=== PATIENT | female | born 1995 | race Hispanic/Latino ===

== ENCOUNTER 2019-10-24 21:48 | Observation (INO) | payer MEDICAID ==
[~2019-10-24] VITALS: Ht 157.5 cm; Wt 73.5 kg
[~2019-10-24 21:48] MED LIST: IBUP-2070 PO; TYL3 PO
[2019-10-24] MEDS ORDERED: LACTATED RINGERS 1000ML 1,000 ML IV SCH (22:00)
[2019-10-24] MEDS ORDERED: PREN-196 PO (22:04)
[2019-10-24] MEDS ORDERED: FERR-82 PO (22:04)
[2019-10-24 22:10] VITALS: BP 111/68
[2019-10-24 22:39] LABS: APPEARANCE,URINE Clear (CLEAR); BILIRUBIN,URINE Negative (NEGATIVE); COLOR,URINE Yellow (YELLOW); GLUCOSE, URINE (UA) Negative (NEGATIVE); KETONES,URINE >=160 mg/dL (NEGATIVE); LEUKOCYTE ESTERASE ,URINE Negative (NEGATIVE); NITRATE,URINE Negative (NEGATIVE); OCCULT BLOOD,URINE Negative (NEGATIVE); PH,URINE 6.5 (5.0-8.0); PROTEIN,URINE Negative (NEGATIVE)
[2019-10-24 22:46] LABS: AMPHET/METH SCREEN,URINE NEGATIVE (NEGATIVE); BARBITURATE SCREEN, URINE NEGATIVE (NEGATIVE); BENZODIAZEPINES SCREEN,URINE NEGATIVE (NEGATIVE); CANNABINOID SCREEN,URINE POSITIVE (NEGATIVE); COCAINE SCREEN,URINE NEGATIVE (NEGATIVE); OPIATE SCREEN,URINE NEGATIVE (NEGATIVE); PHENCYCLIDINE SCREEN,URINE NEGATIVE (NEGATIVE)
[2019-10-24] MEDS ORDERED: ACETAMINOPHEN EXTRA STRENGTH 500 MG TABLET ONE (23:11)
[2019-10-24] MEDS ORDERED: LACTATED RINGERS 1000ML IV PRN (23:15)
[2019-10-24] MEDS ORDERED: ACETAMINOPHEN EXTRA STRENGTH 500 MG TABLET PO SCH (23:15)
[2019-10-24 23:19] LABS: BACTERIA,URINE Few /HPF (None Seen); MUCUS,URINE Moderate LPF (None Seen); RBC,URINE 0-1 /HPF (0-1); SQUAMOUS EPITHELIAL CELL,UR 0-2 /HPF (0-2)
[2019-10-25] MEDS ORDERED: LACTATED RINGERS 1000ML 1,000 ML IV SCH (00:15)
== END 2019-10-25 01:20 | disposition home or self-care (01) ==
LOC: EDH 21:48 → LDH 21:49
PROVIDERS: ADMIT Obstetrics & Gynecology; ATTEND Obstetrics & Gynecology
DX: O26.892 Other specified pregnancy related conditions, second trimester (principal); R10.30 Lower abdominal pain, unspecified; R51 Headache; Z87.59 Personal history of other complications of pregnancy, childbirth and the puerperium; Z3A.20 20 weeks gestation of pregnancy
CPT/HCPCS: 80305; 81001; 99284; G0378 ×3; J7120 ×2; 96360; 96361

== ENCOUNTER 2019-11-27 11:58 | Observation (INO) | payer MEDICAID ==
[~2019-11-27 11:58] MED LIST changes: +FERR-82 PO; +PREN-196 PO
[2019-11-27] MEDS ORDERED: ACETAMINOPHEN 325 MG TAB ONE (12:34)
[2019-11-27 13:31] LABS: APPEARANCE,URINE Cloudy (CLEAR); BILIRUBIN,URINE Negative (NEGATIVE); COLOR,URINE Dark Yellow (YELLOW); GLUCOSE, URINE (UA) Negative (NEGATIVE); KETONES,URINE Trace mg/dL (NEGATIVE); LEUKOCYTE ESTERASE ,URINE Negative (NEGATIVE); NITRATE,URINE Negative (NEGATIVE); OCCULT BLOOD,URINE Negative (NEGATIVE); PROTEIN,URINE POS 1+ mg/dL (NEGATIVE)
[2019-11-27] MEDS ORDERED: LACTATED RINGERS 1000ML IV SCH (13:45)
[2019-11-27 13:50] LABS: BACTERIA,URINE Rare /HPF (None Seen); MUCUS,URINE Moderate LPF (None Seen); RBC,URINE None Seen /HPF (0-1); WBC,URINE None Seen /HPF (0-1)
[2019-11-27 14:10] LABS: HEMATOCRIT 30.3 % (36-48); MEAN CORPUSCULAR HEMOGLOBIN 30.5 pg (27.0-33.0); MEAN CORPUSCULAR VOLUME 92.4 fL (79-99); PLATELET COUNT (AUTO) 104 K/uL (130-400); RED BLOOD CELL COUNT(AUTO) 3.28 MIL/uL (4.00-5.50); RED CELL DISTRIBUTION WIDTH 13.8 % (11.0-15.5); WHITE BLOOD COUNT (AUTO) 8.8 K/uL (4.8-10.8)
[2019-11-27] MEDS ORDERED: AZITHROMYCIN 250 MG TABLET PO SCH (14:15)
[2019-11-27 15:38] LABS: BAND NEUTROPHILS % (MANUAL) 5 % (0-2); EOSINOPHILS % (MANUAL) 2 % (1-6); MAN.DIFF COMMENT-IMPRESSION MANUAL DIFFERENTIAL; MONOCYTES % (MANUAL) 3 % (2-9); PLATELET MORPHOLOGY COMMENT SLIGHTLY DECREASED; SEGMENTED NEUTROPHILS % 90 % (40-70)
== END 2019-11-27 15:45 | disposition home or self-care (01) ==
LOC: EDH 11:58 → LDH 12:44
DX: O26.892 Other specified pregnancy related conditions, second trimester (principal); R10.9 Unspecified abdominal pain; Z3A.23 23 weeks gestation of pregnancy
CPT/HCPCS: 36415; 81001; 85025; 87804 ×2; 99284; G0378 ×3; J7120; 96360; 96361

== ENCOUNTER 2020-03-09 14:45 | Inpatient (IN) | payer MEDICAID ==
[~2020-03-09] VITALS: Ht 157.5 cm; Wt 87.1 kg
[2020-03-14] VITALS (15 sets, daily range): BP systolic 94–128; BP diastolic 53–80
[2020-03-14] MEDS ORDERED: CEFAZOLIN SODIUM 1 GM VIAL IVP PRN (06:15)
[2020-03-14] MEDS ORDERED: CALDOLOR 800MG+NS 250ML 250 ML IV ONE (06:15)
[2020-03-14] MEDS ORDERED: LACTATED RINGERS 1000ML 1,000 ML IV SCH (06:15)
[2020-03-14 06:49] LABS: HEMATOCRIT 34.9 % (36-48); MEAN CORPUSCULAR HEMOGLOBIN 29.5 pg (27.0-33.0); MEAN CORPUSCULAR HGB CONC 32.7 g/dL (32.0-36.0); MEAN CORPUSCULAR VOLUME 90.4 fL (79-99); RED BLOOD CELL COUNT(AUTO) 3.86 MIL/uL (4.00-5.50); RED CELL DISTRIBUTION WIDTH 13.6 % (11.0-15.5); WHITE BLOOD COUNT (AUTO) 7.6 K/uL (4.8-10.8)
[2020-03-14 06:57] LABS: APPEARANCE,URINE Cloudy (CLEAR); BILIRUBIN,URINE Negative (NEGATIVE); COLOR,URINE Yellow (YELLOW); GLUCOSE, URINE (UA) Negative (NEGATIVE); KETONES,URINE Trace mg/dL (NEGATIVE); LEUKOCYTE ESTERASE ,URINE Large (NEGATIVE); NITRATE,URINE Negative (NEGATIVE); OCCULT BLOOD,URINE Negative (NEGATIVE); PH,URINE 6.5 (5.0-8.0); PROTEIN,URINE Trace mg/dL (NEGATIVE)
[2020-03-14 07:08] LABS: BACTERIA,URINE Few /HPF (None Seen); MUCUS,URINE Few LPF (None Seen); RBC,URINE 0-1 /HPF (0-1); SQUAMOUS EPITHELIAL CELL,UR Moderate /HPF (0-2); YEAST,URINE BUDDING Few /HPF (None Seen)
[2020-03-14 07:30] LABS: BASOPHILS % (AUTO) 0.4 % (0.0-5.0); EOSINOPHILS % (AUTO) 1.5 % (0.0-8.0); HEMATOCRIT 29.9 % (36-48); LYMPHOCYTES % (AUTO) 20.6 % (21.0-51.0); MEAN CORPUSCULAR HEMOGLOBIN 30.5 pg (27.0-33.0); MEAN CORPUSCULAR HGB CONC 33.1 g/dL (32.0-36.0); MONOCYTES % (AUTO) 5.9 % (3.0-13.0); RED BLOOD CELL COUNT(AUTO) 3.25 MIL/uL (4.00-5.50); RED CELL DISTRIBUTION WIDTH 13.4 % (11.0-15.5); WHITE BLOOD COUNT (AUTO) 7.1 K/uL (4.8-10.8)
[2020-03-14] MEDS ORDERED: OXYTOCIN-LR 20 UNITS/1000 ML 1,000 ML IV SCH (07:30)
[2020-03-14 07:39] LABS: AMPHET/METH SCREEN,URINE NEGATIVE (NEGATIVE); BARBITURATE SCREEN, URINE NEGATIVE (NEGATIVE); BENZODIAZEPINES SCREEN,URINE NEGATIVE (NEGATIVE); CANNABINOID SCREEN,URINE NEGATIVE (NEGATIVE); COCAINE SCREEN,URINE NEGATIVE (NEGATIVE); OPIATE SCREEN,URINE NEGATIVE (NEGATIVE); PHENCYCLIDINE SCREEN,URINE NEGATIVE (NEGATIVE)
[2020-03-14 07:39] LABS: PLATELET COUNT (AUTO) 81 K/uL (130-400)
[2020-03-14] MEDS ORDERED: OXYTOCIN-LR 20 UNITS/1000 ML 2,000 ML IV ONE (07:39)
[2020-03-14] MEDS ORDERED: DEXAMETHASONE SOD PHOSPHATE 10MG/ML 1ML VIAL ONE (08:09)
[2020-03-14] MEDS ORDERED: ONDANSETRON HCL 4 MG/2 ML VIAL ONE (08:09)
[2020-03-14] MEDS ORDERED: PHENYLEPHRINE HCL 10 MG/ML 1ML VIAL IV ONE (08:09)
[2020-03-14] MEDS ORDERED: DURAMORPH PF1 MG/ML 10ML AMP IV ONE (08:10)
[2020-03-14] MEDS ORDERED: EPHEDRINE SULFATE 50 MG/ML AMPULE ONE ×2 (08:10→08:27)
[2020-03-14] MEDS ORDERED: OXYTOCIN 10 USP UNITS/ML ONE ×2 (08:17→08:51)
[2020-03-14] MEDS ORDERED: ONDANSETRON HCL 4 MG/2 ML VIAL IVP PRN (11:30)
[2020-03-14] MEDS ORDERED: DiphenhydrAMINE HCL 50 MG/ML VIAL IVP PRN (11:30)
[2020-03-14] MEDS ORDERED: NALOXONE HCL 0.4 MG/1 ML ML IVP PRN ×2 (11:30)
[2020-03-14] MEDS ORDERED: EPHEDRINE SULFATE 50 MG/ML AMPULE IVP PRN (11:30)
[2020-03-14] MEDS ORDERED: MEPERIDINE-PF 75 MG/ML SYG IM PRN (12:45)
[2020-03-14] MEDS ORDERED: OXYTOCIN-LR 20 UNITS/1000 ML 1,000 ML IV PRN (12:45)
[2020-03-14] MEDS ORDERED: SODIUM CHLORIDE 0.9% 10 ML VIAL IVP PRN (12:45)
[2020-03-14] MEDS ORDERED: PROMETHAZINE HCL 25 MG/ML 1ML AMPULE IM PRN (12:45)
[2020-03-14] MEDS ORDERED: DEXTROSE 5 %-0.45 % NACL 1,000 ML IV PRN (12:45)
--- NOTE | 2020-03-14 15:29 | NUR ---
HX of +UDS for THC on 10/24/2019 Sw met with pt who states she and Alirio Javier (27) [birth year] live in [address] with her 8yro son, and her parents. Pt states this is first child for the couple son Zeb Javier. 8yro son is from a previous relationship and she gets child support for him. Pt has Medicaid, WIC and food stamp assistance. works in appeninging and as a provider. Couple has car seat and basic items for ZUGGI. Couple has good family support in place. Pt stated last time he smoke THC was last summer. When asked about +UDS in Oct 2019, pt denied marijuana abuse, states her is the one that smokes. Pt denied smoking during the . Pt refused resources for substance abuse offered. Pt was negative on delivery, meconium test results pending on Baby. If results positive, report will be made to CPS. Pt denies hx of abuse, domestic violence, mental health issues or CPS. SW to follow reports if appropriate Addendum: 03/14/20 at 1544 by GILBERT SINGLETON Amended: Links added.
[2020-03-14] MEDS: CALDOLOR 800MG+NS 250ML 250 ML IV SCH (17:03)
[2020-03-14] MEDS ORDERED: CALDOLOR 800MG+NS 250ML 250 ML IV SCH (20:45)
--- NOTE | 2020-03-14 21:30 | NUR ---
[facility] CARE GIVEN, ASSISTED PATIENT TO SIDE OF BED TO DANGLE, TOLERATED WELL, ASSISTED OUT OF BED, WALKED TO CHAIR, NO CONCERNS VOICED , ABD BINDER WAS APPLIED Addendum: 03/15/20 at 0200 by IVON DNUCAN LVN Amended: Links added.
[2020-03-15] MEDS: CALDOLOR 800MG+NS 250ML 250 ML IV SCH (01:10)
[2020-03-15 03:50] VITALS: BP 93/54
--- NOTE | 2020-03-15 04:40 | NUR ---
PEPPER CATHETER F/C REMOVED , INTACT , TOLERATED WELL, INSTRUCTED PATIENT TO CALL FOR ASSISTANCE WHEN SHE HAS URGE TO VOID, ACKNOWLEDGES UNDERSTANDING
[2020-03-15] MEDS ORDERED: HYDROCODONE/ACETAMINOPHEN 5/325 MG TAB ONE ×2 (05:28→05:29)
[2020-03-15] MEDS ORDERED: HYDROCODONE/ACETAMINOPHEN 5/325 MG TAB PO PRN ×2 (05:30→10:00)
[2020-03-15 06:52] LABS: HEMATOCRIT 26.6 % (36-48); MEAN CORPUSCULAR HEMOGLOBIN 30.2 pg (27.0-33.0); MEAN CORPUSCULAR HGB CONC 32.3 g/dL (32.0-36.0); MEAN CORPUSCULAR VOLUME 93.3 fL (79-99); RED BLOOD CELL COUNT(AUTO) 2.85 MIL/uL (4.00-5.50); RED CELL DISTRIBUTION WIDTH 13.3 % (11.0-15.5)
[2020-03-15 07:38] VITALS: BP 95/49
[2020-03-15] MEDS ORDERED: ACETAMINOPHEN-CODEINE 300/30MG TAB PO PRN (10:00)
[2020-03-15] MEDS ORDERED: SIMETHICONE 80 MG TAB.CHEW PO PRN (10:00)
[2020-03-15] MEDS ORDERED: IBUPROFEN 600 MG TABLET PO PRN (10:00)
[2020-03-15] MEDS ORDERED: BISACODYL 10 MG SUPP.RECT RC PRN (10:00)
[2020-03-15] MEDS ORDERED: MEASLES/MUMPS/RUBELLA VACCINE, LIVE 0.5 ML/VIAL SQ SCH (10:00)
[2020-03-15] MEDS ORDERED: DIPH,PERTUSS(ACELL),TET VAC/PF 0.5 ML VIAL IM SCH (10:00)
[2020-03-15] MEDS ORDERED: ACETAMINOPHEN EXTRA STRENGTH 500 MG TABLET PO PRN (10:00)
[2020-03-15] MEDS ORDERED: LANOLIN 30GM OINTMENT TP PRN (10:00)
[2020-03-15 11:20] VITALS: BP 113/68
[2020-03-15] MEDS ORDERED: IBUP-2077 PO (11:29)
[2020-03-15] MEDS ORDERED: ACET1TAB25 PO (11:30)
[2020-03-15] MEDS ORDERED: DOCU240C80 PO (11:30)
--- NOTE | 2020-03-15 12:30 | NUR ---
verbal and written discharge instructions given, informed of the follow up appointment, prescription given. informed to call the doctor for future concerns. pt voiced understanding to all things discussed. Addendum: 03/15/20 at 1342 by MARKOS SALES RN Amended: Links added.
--- NOTE | 2020-03-15 13:00 | NUR ---
pt is dismissed in stable condition, brought to private car via wheelchair by Kika garnica. Addendum: 03/15/20 at 1347 by MARKOS SALES RN Amended: Links added.
[2020-03-15] MEDS ORDERED: DOCUSATE SODIUM 100 MG CAP PO SCH (21:00)
[2020-03-17 08:35] LABS: HEPATITIS Bs ANTIGEN SCREEN P SEE SEPARATE REPORT (Negative)
== END 2020-03-15 13:00 | disposition home or self-care (01) | DRG 540 ==
LOC: EDSTATUS 14:45 → LDH 03-14 05:41 → WSH 03-14 09:36
PROC: 3E0234Z Introduction of Serum, Toxoid and Vaccine into Muscle, Percutaneous Approach (ICD-10-PCS; 2020-03-14)
PROC: 3E0134Z Introduction of Serum, Toxoid and Vaccine into Subcutaneous Tissue, Percutaneous Approach (ICD-10-PCS; 2020-03-14)
PROC: 10D00Z1 Extraction of Products of Conception, Low, Open Approach (ICD-10-PCS; principal; 2020-03-14 07:30)
DX: O34.211 Maternal care for low transverse scar from previous cesarean delivery (principal); D64.9 Anemia, unspecified; K66.0 Peritoneal adhesions (postprocedural) (postinfection); O99.02 Anemia complicating childbirth; Z37.0 Single live birth; Z3A.39 39 weeks gestation of pregnancy; Z23 Encounter for immunization
CPT/HCPCS: 36415; 59510; 80305; 81001; 85025; 85027; 86592; 86850; 86900; 86901; 87088; 87340; 90707; 90715; A4344; G0378; J0690; J1100; J1741; J2274; J2370; J2405; J2590; J3490; J7120; U0003

== ENCOUNTER 2021-01-24 18:01 | Emergency (ER) | payer MEDICAID ==
[~2021-01-24 18:01] MED LIST changes: +ACET1TAB25 PO; +DOCU240C80 PO; -IBUP-2070 PO; +IBUP-2077 PO
[2021-01-24 18:54] LABS: APPEARANCE,URINE Clear (CLEAR); BILIRUBIN,URINE Negative (NEGATIVE); COLOR,URINE Yellow (YELLOW); GLUCOSE, URINE (UA) Negative (NEGATIVE); KETONES,URINE >=80 mg/dL (NEGATIVE); LEUKOCYTE ESTERASE ,URINE Negative (NEGATIVE); NITRATE,URINE Negative (NEGATIVE); OCCULT BLOOD,URINE Moderate (NEGATIVE); PROTEIN,URINE Negative (NEGATIVE)
[2021-01-24 18:56] LABS: HCG,QUAL RESULT NEGATIVE (NEGATIVE)
[2021-01-24 19:03] LABS: BACTERIA,URINE Rare /HPF (None Seen); MUCUS,URINE Few LPF (None Seen); SQUAMOUS EPITHELIAL CELL,UR Rare /HPF (0-2); WBC,URINE 0-1 /HPF (0-1)
[2021-01-24 19:20] LABS: BASOPHILS % (AUTO) 0.3 % (0.0-5.0); EOSINOPHILS % (AUTO) 1.5 % (0.0-8.0); HEMATOCRIT 40.6 % (36-48); LYMPHOCYTES % (AUTO) 9.1 % (21.0-51.0); MEAN CORPUSCULAR HEMOGLOBIN 29.3 pg (27.0-33.0); MEAN CORPUSCULAR VOLUME 88.8 fL (79-99); MONOCYTES % (AUTO) 4.1 % (3.0-13.0); NEUTROPHILS % (AUTO) 84.8 % (40.0-77.0); PLATELET COUNT (AUTO) 154 K/uL (130-400); RED BLOOD CELL COUNT(AUTO) 4.57 MIL/uL (4.00-5.50); RED CELL DISTRIBUTION WIDTH 12.7 % (11.0-15.5); WHITE BLOOD COUNT (AUTO) 9.4 K/uL (4.8-10.8)
[2021-01-24] MEDS ORDERED: ONDANSETRON HCL 4 MG/2 ML VIAL ONE (19:21)
[2021-01-24 19:35] LABS: CREATININE 0.6 mg/dL (0.5-1.5); POTASSIUM 3.6 mmol/L (3.5-5.1)
[2021-01-24 19:39] LABS: ALBUMIN 4.4 g/dL (3.5-5.0); BILIRUBIN,TOTAL 1.1 mg/dL (0.2-1.0); TOTAL PROTEIN, SERUM 8.5 g/dL (6.0-8.3)
[2021-01-24 20:14] LABS: RAPID GROUP A STREP NEGATIVE (NEGATIVE)
[2021-01-24] MEDS ORDERED: MAG HYDROX/AL HYDROX/SIMETH ES 30 ML SUSP UDCUP ONE (20:22)
[2021-01-24] MEDS ORDERED: LIDOCAINE HCL 2% VISCOUS 15 ML UDCUP ONE (20:22)
== END 2021-01-24 21:31 | disposition home or self-care (01) ==
LOC: EDH 18:01
DX: K29.00 Acute gastritis without bleeding (principal); Z20.822 Contact with and (suspected) exposure to COVID-19
CPT/HCPCS: 36415; 80053; 81001; 81025; 82150; 83690; 85025; 87426; 87880; 96374; 99283; J2405; U0003